=== PATIENT | female | born 1975 | race Caucasian/White ===

== ENCOUNTER 2017-06-24 18:20 | Emergency (ER) | payer MEDICARE, OTHER ==
[~2017-06-24] VITALS: Ht 170.2 cm; Wt 128.4 kg
[~2017-06-24 18:20] MED LIST: ALPRAZOLAM0.5 MG PO; B COMPLETE1 EACH PO; CLARITIN10 MG PO; CLINDAMYCIN HC300 MG PO; EPIPEN 2-P0.3 MG/0.3 IM; FLOMAX0.4 MG PO; HUMALOG100 UNIT/2 SUB-Q; IBUPROFEN600 MG PO; LANTUS100 UNITS/ SUB-Q; LISINOPRIL10 MG PO; MACROBID 100 M100 MG PO; MAGNESIUM100 MG PO; MOTRIN800 MG PO; NEURONTIN400 MG PO; NOVOLIN R100 UNIT/1 IJ; NOVOLOG100 UNITS/ IV; OMEPRAZOLE20 MG PO; PROTONIX20 MG PO; TOUJEO SOL300 UNIT/1 SQ; TRAMADOL HCL50 MG PO; ULTRAM50 MG PO; VICTOZA 3-0.6 MG/0.1 SUB-Q; ZOFRAN8 MG PO
[2017-06-24] MEDS ORDERED: FENOFIBRATE145 MG PO (19:17)
[2017-06-24] MEDS ORDERED: LISINOPRIL10 MG PO (19:17)
[2017-06-24] MEDS ORDERED: VENTOLIN HFA18 GM INH (19:18)
[2017-06-24] MEDS ORDERED: CYCLOBENZAPRINE10 MG PO (20:10)
[2017-06-24] MEDS ORDERED: NAPROXEN500 MG PO (20:10)
== END 2017-06-24 20:28 | disposition home or self-care (01) ==
LOC: ED 18:20
DX: S29.019A Strain of muscle and tendon of unspecified wall of thorax, initial encounter (principal); E10.9 Type 1 diabetes mellitus without complications; I10 Essential (primary) hypertension; H81.09 Meniere's disease, unspecified ear; Z87.442 Personal history of urinary calculi; Z98.51 Tubal ligation status; Z88.2 Allergy status to sulfonamides; Z88.5 Allergy status to narcotic agent; Z88.1 Allergy status to other antibiotic agents; Z88.0 Allergy status to penicillin; Z79.4 Long term (current) use of insulin; Z79.899 Other long term (current) drug therapy; X58.XXXA Exposure to other specified factors, initial encounter
CPT/HCPCS: 71020; 99283

== ENCOUNTER 2017-09-17 05:11 | Emergency (ER) | payer MEDICARE, OTHER ==
[~2017-09-17] VITALS: Ht 170.2 cm; Wt 128.4 kg
[~2017-09-17 05:11] MED LIST changes: +CYCLOBENZAPRINE10 MG PO; +FENOFIBRATE145 MG PO; +NAPROXEN500 MG PO; +VENTOLIN HFA18 GM INH
[2017-09-17] MEDS ORDERED: DULOXETINE HCL30 MG PO (05:29)
[2017-09-17] MEDS ORDERED: FLOMAX0.4 MG PO (07:00)
[2017-09-17] MEDS ORDERED: ZOFRAN ODT4 MG PO (07:00)
[2017-09-17] MEDS ORDERED: DILAUDID2 MG PO (07:00)
[2017-09-17] MEDS ORDERED: MACROBID 100 M100 MG PO (07:03)
== END 2017-09-17 07:27 | disposition home or self-care (01) ==
LOC: ED 05:11
DX: N13.2 Hydronephrosis with renal and ureteral calculous obstruction (principal); E10.9 Type 1 diabetes mellitus without complications; I10 Essential (primary) hypertension; F17.200 Nicotine dependence, unspecified, uncomplicated; Z87.442 Personal history of urinary calculi; Z98.51 Tubal ligation status; Z91.048 Other nonmedicinal substance allergy status; Z88.2 Allergy status to sulfonamides; Z88.8 Allergy status to other drugs, medicaments and biological substances; Z88.5 Allergy status to narcotic agent; Z88.0 Allergy status to penicillin; Z88.1 Allergy status to other antibiotic agents; Z79.899 Other long term (current) drug therapy; Z79.4 Long term (current) use of insulin
CPT/HCPCS: 36415; 74176; 80053; 81001; 85025; 87088; 96374; 96375; 99284; J1170; J1885; J2405

== ENCOUNTER 2017-09-19 10:49 | Observation (INO) | payer MEDICARE, OTHER ==
[~2017-09-19] VITALS: Ht 170.2 cm; Wt 133.4 kg
--- OUTSIDE RECORDS SUMMARY | ~2017-09-19 | XMS | Clinical Summary ---
Demographics + + + | Address | [address] | | | [place] [address] | + + + | Home Phone | | + + + | Preferred Language | Unknown | + + + | Marital Status | | + + + | Druze Affiliation | NON | + + + | Race | White | + + + | Ethnic Group | Not or | + + + Author + + + | Author | [facility] | + + + | Organization | [facility] | + + + | Address | Unknown | + + + | Phone | Unavailable | + + + Support +------+ + + + +-------+ | Name | Relationship | Address | Phone | +------+ + + + +-------+ ECON | | | #[id number] | [phone] | +------+ + + + +-------+ Care Team Providers + +------+-------+ | Care Roller Name | Role | Phone | + +------+-------+ | Lalit Warner SIGNAL TESTER | PP | tel | + +------+-------+ Source Comments FANG is fully live on both EpicCare Ambulatory and EpicCare InPatient.[facility] Allergies + + + + + + | Active Allergy | Reactions | Severity | Noted | Comments | | | | | Date | | + + + + + + | Diphenhydramine Hcl | Hives | | 08/26/20 | | | | | | 15 | | + + + + + + | Codeine | Unknown | | /08/12 | | | | | | 15 | | + + + + + + | Honey | Unknown | | / | | | | | | 15 | | + + + + + + | Influenza Virus Vacc | Airway Constriction | High | 10/09/20 | | | Trivalent [id number] | | | 15 | | + + + + + + | Morphine | Anaphylaxis | High | 08/26/20 | | | | | | 15 | | + + + + + + | Penicillin | Anaphylaxis | High | 07/03/20 | | | | | | 15 | | + + + + + + | Oxycodone-Acetaminop | Unknown | High | 08/26/20 | Historical- | | hen | | | 15 | patient unsure of | | | | | | reaction but knows | | | | | | had reaction in the | | | | | | past | + + + + + + | Sulfa (Sulfonamide | Unknown | | 07/03/20 | | | Antibiotics) | | | 15 | | + + + + + + | Hydrocodone-Acetamin | Unknown | | 07/03/20 | | | ophen | | | 15 | | + + + + + + Current Medications + + +---------+---------+------+------+-------+ | Prescription | Sig. | Disp. | Refills | Star | End | Statu | | | | | | t | Date | s | | | | | | Date | | | + + +---------+---------+------+------+-------+ | omeprazole 40 mg | Take 40 mg by mouth | | | | | Activ | | oral capsule,delayed | once daily in the | | | | | e | | release(DR/EC) | morning. | | | | | | + + +---------+---------+------+------+-------+ | loratadine 10 mg | Take 10 mg by mouth | | | | | Activ | | oral tablet | once daily in the | | | | | e | | | morning. | | | | | | + + +---------+---------+------+------+-------+ | lisinopril 10 mg | Take 10 mg by mouth | | | | | Activ | | oral tablet | once daily at | | | | | e | | | bedtime. | | | | | | + + +---------+---------+------+------+-------+ | ibuprofen 600 mg | Take 600 mg by mouth | | | | | Activ | | oral tablet | every six hours as | | | | | e | | | needed. | | | | | | + + +---------+---------+------+------+-------+ | glucose chewable 4 | Chew and swallow 2.5 | 30 | 1 | 12/2 | | Activ | | gram oral | tablets as needed | tablet | | 0/20 | | e | | tablet,chewable | for hypoglycemia. | | | 15 | | | | | Repeat in 10 minutes | | | | | | | | if necessary. | | | | | | | | Response should | | | | | | | | occur in 10 minutes. | | | | | | + + +---------+---------+------+------+-------+ | polyethylene | Dissolve 17 g (1 | 255 g | 0 | 12/2 | | Activ | | glycol 17 gram/dose | capful) in at least | | | 0/20 | | e | | oral powder | 4 ounces of fluid | | | 15 | | | | | and drink once | | | | | | | | daily. | | | | | | + + +---------+---------+------+------+-------+ | senna-docusate | Take 1 tablet by | 30 | 0 | 12/2 | | Activ | | 8.6-50 mg oral | mouth two times | tablet | | 0/20 | | e | | tablet | daily. | | | 15 | | | + + +---------+---------+------+------+-------+ | magnesium oxide | Take 250 mg by mouth | | | | | Activ | | 250 mg oral tablet | once daily. Take | | | | | e | | | two tabs once daily | | | | | | + + +---------+---------+------+------+-------+ | hydrocortisone 10 | Take 2 tablets by | 120 | 1 | 01/1 | | Activ | | mg oral tablet | mouth two times | tablet | | 2/20 | | e | | | daily. Taper as | | | 16 | | | | | instructed starting | | | | | | | | with evening dose to | | | | | | | | 20mg daily | | | | | | + + +---------+---------+------+------+-------+ | potassium chloride | Take 1 tablet by | 30 | 1 | 01/1 | | Activ | | SR 20 mEq oral | mouth once daily. | tablet | | 2/20 | | e | | tablet,ER | | | | 16 | | | | particles/crystals | | | | | | | + + +---------+---------+------+------+-------+ | VICTOZA 3-QUANG 0.6 | | | | 05/0 | | Activ | | mg/0.1 mL (18 mg/3 | | | | 3/20 | | e | | mL) subcutaneous pen | | | | 16 | | | | injector | | | | | | | + + +---------+---------+------+------+-------+ | VENTOLIN HFA 90 | | | | 02/2 | | Activ | | mcg/actuation | | | | 2/20 | | e | | inhalation HFA | | | | 16 | | | | aerosol inhaler | | | | | | | + + +---------+---------+------+------+-------+ | insulin glargine | Inject 700 Units | | | | | Activ | | 300 unit/mL (1.5 mL) | under the skin | | | | | e | | subcutaneous | (SUBC) once daily. 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 | + + + + + | Overview: Sep 2015: Left Adrenalectomy | + + + +---+ | Type 1 diabetes mellitus (HCC) | | + +---+ | Poor venous access | | + +---+ Resolved Problems + + + + | Problem | Noted | Resolved | | | Date | Date | + + + + | Adrenal mass, left (HCC) | 08/26/20 | | | | 15 | 5 | + + + + | Adrenal cortical adenoma of left adrenal gland | 07/03/20 | | | | 15 | 5 | + + + + + + | Overview: Nov 2013 CT: Left 3 cm adenoma | + + Family History + + +------+ + | Medical History | Relation | Name | Comments | + + +------+ + | Heart Disease | Father | | | + + +------+ + | Anesthesia | Mother | | unknown reaction "allergic to something" | + + +------+ + + +------+--------+ + | Relation | Name | Status | Comments | + +------+--------+ + | Father | | | | + +------+--------+ + | Mother | | | | + +------+--------+ + Social History + + + +--------+ + | Tobacco Use | Types | Packs/Day | Years | Date | | | | | Used | | + + + +--------+ + | Former Smoker | Cigarettes | 0.1 | 10 | Quit: 10/24/2009 | + + + +--------+ + + +------+---+ + | Smokeless Tobacco: | Chew | | Quit: | | Former User | | | 10/24/19 | | | | | 03 | + +------+---+ + + + | Tobacco Cessation: Counseling Given: Yes | + + + + +---------+ + | Alcohol Use | Drinks/We | oz/Week | Comments | | | ek | | | + + +---------+ + | Yes | 0 | 0.0 | rarely | | | Standard | | | | | drinks or | | | | | | | | | | equivalen | | | | | t | | | + + +---------+ + + + + | Sex Assigned at | Date Recorded | | | | + + + | Not on file | | + + + Last Filed Vital Signs + + + + | Vital Sign | Reading | Time Taken | + + + + | Blood Pressure | 116/79 | 02/27/2016 10:43 AM PDT | + + + + | Pulse | 89 | 02/27/2016 10:43 AM PDT | + + + + | Temperature | 36.8 C (98.3 F) | 02/27/2016 10:43 AM PDT | + + + + | Respiratory Rate | 16 | 12/29/2015 9:05 AM PST | + + + + | Oxygen Saturation | 96% | 10/12/2015 8:21 AM PST | + + + + | Inhaled Oxygen | - | - | | Concentration | | | + + + + | Weight | 135.6 kg (299 lb) | 02/27/2016 10:43 AM PDT | + + + + | Height | 170.2 cm (5' 7") | 02/27/2016 10:43 AM PDT | + + + + | Body Mass Index | 46.83 | 02/27/2016 10:43 AM PDT | + + + + Plan of Treatment + + + + + | Health Maintenance | Due Date | Last Done | Comments | + + + + + | MONOFILAMENT FOOT | | | | | EXAM | 6 | | | + + + + + | URINE MICROALBUMIN | | | | | | 6 | | | + + + + + | CREATININE | | 02/27/2016, 12/29/2015, | | | | 7 | 10/12/2015, Additional history | | | | | exists | | + + + + + | INFLUENZA VACCINE | | | | | (FLU SHOT) | 7 | | | + + + + + Results Not on filefrom Last 3 Months
--- OUTSIDE RECORDS SUMMARY | ~2017-09-19 | XMS | Clinical Summary ---
Demographics + + + | Address | [address] | | | [place] [address] | + + + | Home Phone | | + + + | Preferred Language | Unknown | + + + | Marital Status | | + + + | Episcopal Affiliation | NON | + + + [...] ECON | | | #[id number] | [phone] | +------+ + + + +-------+ Care Team Providers + +------+-------+ | Care Electromechanical Technician Name | Role | Phone | + +------+-------+ | Lalit Warner DISPLAY MANAGER | PP | tel | + +------+-------+ Source Comments F[facility] is fully live on both EpicCare Ambulatory and EpicCare InPatient.[facility] Allergies + + + + + + [...] High | 10/09/20 | | | Trivalent [id number] | | | 15 | | + [...]
[~2017-09-19 10:49] MED LIST changes: +DILAUDID2 MG PO; +DULOXETINE HCL30 MG PO; +ZOFRAN ODT4 MG PO
[2017-09-20] MEDS ORDERED: LEVOFLOXACIN500 MG PO (13:16)
--- NOTE | 2017-09-21 07:51 | OR ---
[facility] [address], [place] [address] Signed DATE OF OPERATION: 09/19/2017 SURGEON: Checo Messina MD PREOPERATIVE DIAGNOSES: 1. Recent onset left-sided flank pain. 2. A 3 x 6 mm left ureterolithiasis. POSTOPERATIVE DIAGNOSES: 1. Recent onset left-sided flank pain. 2. A 3 x 6 mm left ureterolithiasis. 3. A 6 mm left renal calculus. NAMES OF PROCEDURES: 1. Diagnostic cystoscopy with left retrograde pyelogram. 2. Left flexible nephroureteroscopy with laser lithotripsy and basket extraction of stones. 3. Insertion of an indwelling left ureteral stent. ANESTHESIA: General with endotracheal intubation. ESTIMATED BLOOD LOSS: None. COMPLICATIONS: None. INDICATION FOR PROCEDURE: Ms. Garcia is a very pleasant 42-year-old female, who presented to the emergency department today with a 3-day history of severe left-sided flank pain. She underwent a CT scan, which revealed a 3 x 6 mm left proximal ureteral calculus, along with a 6 mm left lower pole renal calculus. Her creatinine was normal at 0.91. Her urine culture obtained three days ago had revealed no growth. The emergency department was then unable to get her pain under control with oral narcotics. She was therefore sent straight to the operating room to undergo elective ureteroscopy. After she was consented for the procedure, she was placed under LMA anesthesia, however, she began to vomit with the LMA mask in place and she was immediately intubated and her airway was sucked of approximately 15-20 mL of bilious fluid. Chest x-ray was performed, which revealed good placement of the ET tube. Based on the findings of the chest x-ray and the vital stability, the patient, the decision was made to continue with the elective ureteroscopy. OPERATIVE FINDINGS: 1. On cystoscopy, there was no evidence of any suspicious masses, lesions, or stones. Bilateral ureteral orifices are in their normal anatomic location. Electronically Signed By: CHECO MESSINA MD 09/21/17 0751 PATIENT NAME: KENN GARCIA OPERATIVE REPORT DATE OF : 77 PHYSICIAN: CHECO MESSINA MD REPORT #: [id number] REPORT IS CONFIDENTIAL AND NOT TO BE RELEASED WITHOUT AUTHORIZATION [facility] [address] [place] [id number] Signed 2. Left retrograde pyelogram revealed a filling defect in the left renal pelvis consistent with an approximately 5-6 mm stone. There were some mild calyceal dilation noted. 3. Left nephroureteroscopy was performed, which revealed a significant amount of stone sediment present within the left renal pelvis. I was able to appreciate both of the 6 mm stones, which I fragmented with a holmium laser to the best of my ability given the compromised visualization. 4. Approximately 60%-70% of the stone burden was extracted successfully and this placed in a specimen cup to be sent for stone analysis. The patient then underwent insertion of a 6 x 26 cm contour double-J ureteral stent into the left ureter under direct visualization without difficulty. 5. The patient remained hemodynamically stable with good oxygen saturation throughout the entire case. DESCRIPTION OF PROCEDURE: After informed consent was obtained, the patient was taken back to the operating room. She was transferred from the [facility] to the operating room table and then LMA anesthesia was induced, which ultimately was converted to general anesthesia with an endotracheal tube. She was placed in dorsal lithotomy position and her genitalia were prepped and draped in a sterile fashion. Using a 30 degree lens on a 22-Malagasy introducer rigid cystoscope was inserted through the urethra into her bladder under direct visualization. Panendoscopic endoscopic views of the bladder were then obtained. Please see the findings. Attention was turned to the left ureteral orifice. A Sensor wire was inserted up into the left ureteral orifice into the left kidney. An 09/05 ureteral access sheath was passed over the wire and into the patient's left ureter under fluoroscopic guidance. The left retrograde pyelogram was performed. Please see above findings. The obturator was then removed and a left flexible ureteral scope was advanced through the sheath and into the left proximal ureter and left collecting system. Please see above findings. It was very difficult to visualize the left renal pelvis due to the significant amount of sediment present within the kidney. However, I was able to visualize quite a few fragments that I lasered down to smaller fragments, most notably the 6 mm stone present in the lower pole of the left kidney. I believe, I was also able to fragment the smaller formally obstructing ureteral calculus. I was able to basket approximately 60% of the stone burden that I was able to visualize. Toward the end of the case, the visual field became obscured not only by stone sediment, but also by significant amount of bleeding from within the calices. Once I was satisfied that I had basketed as many fragments as I could, I passed a Sensor wire through the ureteral access sheath up into the left renal pelvis and then removed the ureteral access sheath. Over the wire, a 6 x 26 cm contour double-J ureteral stent was passed into the left ureter under direct visualization without difficulty. An adequate proximal coil was seen within the left renal pelvis along with an adequate distal coil in the bladder. The patient's bladder was then emptied and the procedure was then terminated. The patient tolerated the procedure well Electronically Signed By: CHECO MESSINA MD 09/21/17 0751 PATIENT NAME: KENN GARCIA OPERATIVE REPORT DATE OF : 77 PHYSICIAN: CHECO MESSINA MD REPORT #: [id number] REPORT IS CONFIDENTIAL AND NOT TO BE RELEASED WITHOUT AUTHORIZATION [facility] [address] [place] [id number] Signed without any complication. She will now be transferred to the critical care unit for routine monitoring given her short-lived respiratory failure that occurred just prior to surgery due to what appeared to be aspiration of vomitus with an LMA in place. To reiterate, however, once the patient was intubated, she recovered nicely and remained widely stable and with good oxygen saturations throughout the remainder of the case. MD YOSEF Villalobos/MODL /[id number] Electronically Signed By: CHECO MESSINA MD 09/21/17 0751 PATIENT NAME: STARLA GARCIACHRISTINA GÓMEZ OPERATIVE REPORT DATE OF : 77 PHYSICIAN: CHECO MESSINA MD REPORT #: [id number] REPORT IS CONFIDENTIAL AND NOT TO BE RELEASED WITHOUT AUTHORIZATION
== END 2017-09-20 13:45 | disposition home or self-care (01) ==
LOC: ED 10:49 → DS 13:26 → CCU 17:12 → DS 17:12 → CCU 17:12
PROVIDERS: ADMIT Urology
PROC: 0T778DZ Dilation of Left Ureter with Intraluminal Device, Via Natural or Artificial Opening Endoscopic (ICD-10-PCS; principal; 2017-09-19 14:00)
PROC: 0TF78ZZ Fragmentation in Left Ureter, Via Natural or Artificial Opening Endoscopic (ICD-10-PCS; principal; 2017-09-19 14:00)
DX: N20.2 Calculus of kidney with calculus of ureter (principal); T17.918A Gastric contents in respiratory tract, part unspecified causing other injury, initial encounter; J96.01 Acute respiratory failure with hypoxia; E11.42 Type 2 diabetes mellitus with diabetic polyneuropathy; I10 Essential (primary) hypertension; H81.09 Meniere's disease, unspecified ear; F17.210 Nicotine dependence, cigarettes, uncomplicated; E66.9 Obesity, unspecified; E78.5 Hyperlipidemia, unspecified; K21.9 Gastro-esophageal reflux disease without esophagitis; J45.909 Unspecified asthma, uncomplicated; Z79.1 Long term (current) use of non-steroidal anti-inflammatories (NSAID); Z79.4 Long term (current) use of insulin; Z79.891 Long term (current) use of opiate analgesic; Z68.41 Body mass index [BMI] 40.0-44.9, adult; Z79.899 Other long term (current) drug therapy; Z88.5 Allergy status to narcotic agent; Z88.0 Allergy status to penicillin; Z88.2 Allergy status to sulfonamides; Z88.8 Allergy status to other drugs, medicaments and biological substances
CPT/HCPCS: 00910; 36415; 71010; 71020; 74176; 74420; 80048; 82365; 85025; 96361; 96365; 96374; 96375; 96376; 99285; 99407; C2617; G0378; J1170; J1885; J1956; J2405; J2704; J2765; J3010; J7030; J7120; Q9967

== ENCOUNTER → 2020-02-09 | Emergency (ER) | payer MEDICARE, OTHER ==
[~2020-02-09] VITALS: Ht 170.2 cm; Wt 114.8 kg
[~2020-02-09] MED LIST changes: +CLEOCIN HCL300 MG PO; +LEVOFLOXACIN500 MG PO
--- OUTSIDE RECORDS SUMMARY | 2020-02-09 10:26 | XMS ---
PreManage Notification: KENN GARCIA Security Flooring Salesperson Events No recent Security Events currently on file CRITERIA MET - [facility] Has Care Guidelines CARE PROVIDERS There are no care providers on record at this time. Guidelines Source: [facility] [place] Guidelines Date: 02/05/2020 Care Coordination: Currently seeking mental health services through [facility]. Please contact [facility] for any mental health concerns.\T\nbsp; [place] [phone] [place] [phone] Crisis Line [phone] E.D. VISIT COUNT (12 MO.) [address] TOTAL 2 NOTE: Visits indicate total known visits. ED/UCC VISIT TRACKING (12 MO.) 02/09/2020 10:24 [facility] TYPE: Emergency COMPLAINT: - FEVER,SWELLING RIGHT LEG AND PAIN 08/07/2019 08:46 [facility] [place] TYPE: Emergency DIAGNOSES: - Pain in right shoulder - Paresthesia of skin - Weakness - Anesthesia of skin - Weakness INPATIENT VISIT TRACKING (12 MO.) No inpatient visits to display in this time frame [email or web address]
== END ==
LOC: ED 10:22
DX: L03.115 Cellulitis of right lower limb (principal); E10.9 Type 1 diabetes mellitus without complications; I10 Essential (primary) hypertension; Z88.2 Allergy status to sulfonamides; Z91.030 Bee allergy status; Z88.5 Allergy status to narcotic agent; Z88.0 Allergy status to penicillin; Z79.899 Other long term (current) drug therapy
CPT/HCPCS: 81001; 99283

== ENCOUNTER 2020-09-08 09:19 | Emergency (ER) | payer MEDICARE, OTHER ==
[~2020-09-08] VITALS: Ht 170.2 cm; Wt 113.4 kg
--- OUTSIDE RECORDS SUMMARY | 2020-09-08 09:22 | XMS ---
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 Please contact [facility] for any mental health concerns.\T\nbsp; [place] [phone] [place] [phone] [facility] [phone] Care History Medical/Surgical 02/11/2020 [facility] - Patient is currently established with [facility]. If patient is seen in the ED during business hours. Please contact CHWs at [facility]. Care Recommendation: If this patient has had 5 or more Emergency Department visits in the last 12 months.\T\nbsp; Patient will require education on the scope and purpose of the ED as an acute care provider not a Primary Care Provider and should not be utilized for chronic conditions.\T\nbsp; These are guidelines and the provider should exercise clinical judgment when providing care. E.D. VISIT COUNT (12 MO.) [address] [facility] TOTAL 2 NOTE: Visits indicate total known visits. ED/UCC VISIT TRACKING (12 MO.) 09/08/2020 09:20 [facility] [place] TYPE: Emergency COMPLAINT: - POSSIBLE CONCUSSION, FALL 02/09/2020 10:24 [facility] [place] TYPE: Emergency COMPLAINT: - FEVER,SWELLING RIGHT LEG AND PAIN DIAGNOSES: - Allergy status to narcotic agent - Allergy status to sulfonamides - Other terminal system operator (current) drug therapy - Type 1 diabetes mellitus without complications - Fever, unspecified - Cellulitis of right lower limb - Bee allergy status - Allergy status to penicillin - Essential (primary) hypertension INPATIENT VISIT TRACKING (12 MO.) No inpatient visits to display in this time frame [email or web address]
== END 2020-09-08 10:36 | disposition home or self-care (01) ==
LOC: ED 09:19
DX: T33.822A Superficial frostbite of left foot, initial encounter (principal); S83.92XA Sprain of unspecified site of left knee, initial encounter; X31.XXXA Exposure to excessive natural cold, initial encounter; E10.9 Type 1 diabetes mellitus without complications; I10 Essential (primary) hypertension; Z88.8 Allergy status to other drugs, medicaments and biological substances; Z88.2 Allergy status to sulfonamides; Z88.5 Allergy status to narcotic agent; Z91.030 Bee allergy status; Z88.0 Allergy status to penicillin; Z79.899 Other long term (current) drug therapy; Z79.891 Long term (current) use of opiate analgesic; Z79.4 Long term (current) use of insulin
CPT/HCPCS: 73560; 93971; 99284-25

== ENCOUNTER 2021-01-28 13:48 | Emergency (ER) | payer MEDICARE, OTHER ==
[~2021-01-28] VITALS: Ht 170.2 cm; Wt 108.9 kg
--- OUTSIDE RECORDS SUMMARY | 2021-01-28 13:50 | XMS ---
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 Please contact [facility] for any mental health concerns.\T\nbsp; [place] [phone] [place] [phone] [facility] [phone] Care History Medical/Surgical 02/11/2020 [facility] - Patient is currently established with [facility]. If patient is seen in the ED during business hours. Please contact CHWs at [facility]. Care Recommendation: If this patient has had [...] providing care. E.D. VISIT COUNT (12 MO.) [address] [facility] TOTAL 3 NOTE: Visits indicate total known visits. ED/UCC VISIT TRACKING (12 MO.) 01/28/2021 13:49 [facility] [place] TYPE: Emergency COMPLAINT: - BEE STING 09/08/2020 09:20 [facility] [place] TYPE: Emergency COMPLAINT: - POSSIBLE CONCUSSION, FALL DIAGNOSES: - Essential (primary) hypertension - Bee allergy status - Superficial frostbite of left foot, initial encounter - Other long-term (current) drug therapy - Allergy status to narcotic agent - Allergy status to sulfonamides - Sprain of unspecified site of left knee, initial encounter - Superficial frostbite of left foot, initial encounter - Allergy status to penicillin - Allergy status to other drugs, medicaments and biological substances - Pain in left foot - Allergy status to narcotic agent - shelter (current) use of insulin - Sprain of unspecified site of left knee, initial encounter - Type 1 diabetes mellitus without complications - Allergy status to sulfonamides - Allergy status to other drugs, medicaments and biological substances - Exposure to excessive natural cold, initial encounter - shelter (current) use of opiate analgesic 02/09/2020 10:[address] [facility] [place] TYPE: Emergency COMPLAINT: - FEVER,SWELLING RIGHT LEG AND PAIN DIAGNOSES: - Allergy status to narcotic agent - Allergy status to sulfonamides - Other long-term (current) drug therapy - Type 1 diabetes mellitus without complications - Fever, unspecified - Cellulitis of right lower limb - Bee allergy status - Allergy status to penicillin - Essential (primary) hypertension INPATIENT VISIT TRACKING (12 MO.) No inpatient visits to display in this time frame [email or web address]
[2021-01-28] MEDS ORDERED: RELION NOV100 UNIT/1 SUB-Q (14:44)
[2021-01-28] MEDS ORDERED: ROSUVASTATIN CA40 MG (14:47)
[2021-01-28] MEDS ORDERED: POTASSIUM CITR15 MEQ PO (14:47)
[2021-01-28] MEDS ORDERED: VITAMIN D250 MC1 PO (14:48)
[2021-01-28] MEDS ORDERED: VITAMIN D250 MCG PO (14:51)
[2021-01-28] MEDS ORDERED: FIBER GUMMIES1 EACH PO (14:51)
[2021-01-28] MEDS ORDERED: EPIPEN 2-P0.3 MG/0.3 IM (16:36)
[2021-01-28] MEDS ORDERED: PREDNISONE20 MG PO (16:36)
== END 2021-01-28 16:48 | disposition home or self-care (01) ==
LOC: ED 13:48
DX: T63.461A Toxic effect of venom of wasps, accidental (unintentional), initial encounter (principal); E10.9 Type 1 diabetes mellitus without complications; I10 Essential (primary) hypertension; Z87.442 Personal history of urinary calculi; Z88.8 Allergy status to other drugs, medicaments and biological substances; Z91.030 Bee allergy status; Z88.2 Allergy status to sulfonamides; Z88.5 Allergy status to narcotic agent; Z88.0 Allergy status to penicillin; Z91.018 Allergy to other foods; Z79.899 Other long term (current) drug therapy; Z79.4 Long term (current) use of insulin
CPT/HCPCS: 94640; 96374; 96375; 99283-25; C9803; J0171; J1100

== ENCOUNTER 2023-01-06 19:43 | Emergency (ER) | payer MEDICARE, OTHER ==
[~2023-01-06] VITALS: Ht 167.6 cm; Wt 141.8 kg
[~2023-01-06 19:43] MED LIST changes: +FIBER GUMMIES1 EACH PO; +POTASSIUM CITR15 MEQ PO; +PREDNISONE20 MG PO; +RELION NOV100 UNIT/1 SUB-Q; +ROSUVASTATIN CA40 MG; +VITAMIN D250 MC1 PO; +VITAMIN D250 MCG PO
[2023-01-06] MEDS ORDERED: PIOGLITAZONE HC30 MG PO (20:21)
[2023-01-06] MEDS ORDERED: NOVOLOG100 UNIT/2 IV (20:22)
[2023-01-06] MEDS ORDERED: DOXYCYCLINE HY100 MG PO (21:45)
== END 2023-01-06 21:57 | disposition home or self-care (01) ==
LOC: ED 19:43
DX: H60.02 Abscess of left external ear (principal); E10.9 Type 1 diabetes mellitus without complications; I10 Essential (primary) hypertension; F17.200 Nicotine dependence, unspecified, uncomplicated; Z88.2 Allergy status to sulfonamides; Z88.8 Allergy status to other drugs, medicaments and biological substances; Z91.030 Bee allergy status; Z88.5 Allergy status to narcotic agent; Z88.0 Allergy status to penicillin; Z91.018 Allergy to other foods; Z79.899 Other long term (current) drug therapy; Z79.4 Long term (current) use of insulin
CPT/HCPCS: 99283

== ENCOUNTER 2023-09-21 04:49 | Emergency (ER) | payer MEDICARE, OTHER ==
[~2023-09-21] VITALS: Ht 167.6 cm; Wt 138.3 kg
[~2023-09-21 04:49] MED LIST changes: +DOXYCYCLINE HY100 MG PO; +INSULIN AS100 UNIT/2 SUB-Q; +NOVOLOG100 UNIT/2 IV; +PIOGLITAZONE HC30 MG PO
[2023-09-21] MEDS ORDERED: TRAMADOL HCL50 MG PO (05:47)
[2023-09-21 06:23] VITALS: BP 124/78
== END 2023-09-21 06:24 | disposition home or self-care (01) ==
LOC: ED 04:49
DX: M25.512 Pain in left shoulder (principal); E10.9 Type 1 diabetes mellitus without complications; I10 Essential (primary) hypertension; F17.200 Nicotine dependence, unspecified, uncomplicated; Z91.030 Bee allergy status; Z88.2 Allergy status to sulfonamides; Z88.5 Allergy status to narcotic agent; Z88.0 Allergy status to penicillin; Z88.8 Allergy status to other drugs, medicaments and biological substances; Z91.018 Allergy to other foods; Z79.4 Long term (current) use of insulin; Z79.899 Other long term (current) drug therapy
CPT/HCPCS: 73030; A9270

== ENCOUNTER 2024-03-06 03:23 | Emergency (ER) | payer MEDICARE, OTHER ==
[~2024-03-06] VITALS: Ht 167.6 cm; Wt 148.1 kg
[2024-03-06] MEDS ORDERED: KETOROLAC TROMETHAMINE 30 MG/ML VIAL IM ONE (04:00)
[2024-03-06] MEDS ORDERED: KETOROLAC TROMETHAMINE 15 MG/ML VIAL IV ONE (04:00)
[2024-03-06] MEDS ORDERED: ACETAMINOPHEN 500 MG TAB PO ONE (04:30)
[2024-03-06 05:00] VITALS: BP 126/84
== END 2024-03-06 05:09 | disposition home or self-care (01) ==
LOC: ED 03:23
DX: M25.512 Pain in left shoulder (principal); G89.29 Other chronic pain; E10.9 Type 1 diabetes mellitus without complications; I10 Essential (primary) hypertension; F17.200 Nicotine dependence, unspecified, uncomplicated; Z91.030 Bee allergy status; Z88.2 Allergy status to sulfonamides; Z88.5 Allergy status to narcotic agent; Z88.8 Allergy status to other drugs, medicaments and biological substances; Z91.018 Allergy to other foods; Z79.4 Long term (current) use of insulin; Z79.899 Other long term (current) drug therapy
CPT/HCPCS: 73030; 96372; 99283-25; A9270; J1885

== ENCOUNTER 2025-02-11 06:30 | Day surgery (SDC) | payer MEDICARE, OTHER ==
[2025-01-31 08:48] VITALS: BP 103/68
[~2025-02-11] VITALS: Ht 167.6 cm; Wt 134.0 kg
[~2025-02-11 06:30] MED LIST changes: +CEFDINIR300 MG PO; +CLARITIN10 M2 PO; +DAILY VITE1 EAC1 PO; +DICLOFENAC SODI75 MG PO; +LACTATED RINGER'S 1,000 ML IV SCH; +PIOGLITAZONE HC15 MG PO; +VITAMIN D210 MCG PO
[2025-02-11 06:52] VITALS: BP 141/82
[2025-02-11] MEDS ORDERED: IBLOOD GLUCOSE TEST STRIP 1 EA TEST VI PRN ×2 (07:00→09:30)
[2025-02-11] MEDS ORDERED: FAMOTIDINE 20 MG/ 2 ML VIAL IV SCH (07:00)
[2025-02-11] MEDS ORDERED: CEFAZOLIN SODIUM 3 GM/30 ML SYR IV SCH (07:00)
[2025-02-11] MEDS ORDERED: LIDOCAINE HCL 1% 5 ML SDV INJ ONE (07:00)
[2025-02-11] MEDS ORDERED: CYMBALTA30 MG PO (07:37)
[2025-02-11] MEDS ORDERED: iopamidoL 30 ML VIAL ONE (07:44)
[2025-02-11] MEDS ORDERED: ondansetron HCL 4 MG/2 ML VIAL IV PRN (08:00)
[2025-02-11] MEDS ORDERED: PROCHLORPERAZINE EDISYLATE 10 MG/2 ML VIAL IV PRN ×2 (08:00→09:30)
[2025-02-11] MEDS ORDERED: KETOROLAC TROMETHAMINE 30 MG/ML VIAL IV PRN (08:00)
[2025-02-11] MEDS ORDERED: ROCURONIUM BROMIDE 50 MG/5 ML SYR ONE ×2 (08:54→10:05)
[2025-02-11] MEDS ORDERED: fentaNYL citrate 250 MCG/5 ML VIAL ONE (08:54)
[2025-02-11] MEDS ORDERED: propofoL 200 MG/20 ML VIAL ONE (08:54)
[2025-02-11] MEDS ORDERED: ACETAMINOPHEN 1,000 MG/100 ML VIAL ONE (08:54)
[2025-02-11] MEDS ORDERED: SUCCINYLCHOLINE IN 0.9% NACL 200 MG/10 ML SYRINGE ONE (08:54)
[2025-02-11] MEDS ORDERED: MIDAZOLAM HCL 2 MG/2 ML VIAL ONE (08:55)
[2025-02-11] MEDS ORDERED: LIDOCAINE HCL 2% 5 ML SDV ONE (08:56)
[2025-02-11] MEDS ORDERED: SUGAMMADEX SODIUM 200 MG/2 ML ML ONE (09:27)
[2025-02-11] MEDS ORDERED: fentaNYL citrate 50 MCG/ML SDV IV PRN (09:30)
[2025-02-11] MEDS ORDERED: HYDROmorphone HCL 1 MG/ML SYR IV PRN (09:30)
[2025-02-11] MEDS ORDERED: droPERidol 5 MG/2 ML VIAL IV PRN (09:30)
[2025-02-11] MEDS ORDERED: NALOXONE HCL 0.4 MG SYR IV PRN (09:30)
[2025-02-11] MEDS ORDERED: ePHEDrine sulfate 50 MG/ML AMP ONE (09:35)
[2025-02-11] MEDS ORDERED: LACTATED RINGER'S 1,000 ML IV ONE (10:07)
--- NOTE | 2025-02-11 11:18 | NUR ---
02/11/25 Blanka8 Lennie Contreras 1055 PT ARRIVED IN PACU SLEEPY. 1059 BLOOD SUGAR 124 ON PT'S OWN T-SLIM DEVICE. 1115 AWAKENS TO VERBAL STIMULI, THEN FALLS BACK TO SLEEP.
[2025-02-11 11:49] VITALS: BP 180/76
--- NOTE | 2025-02-11 12:00 | NUR ---
PT BACK TO DS FROM PACU AWAKE AND ALERT. SHE REPORTS SOME MIND DISCOMPORT SHE DECLINES PAIN MEDS. PT ASKING TO USE BATHROOM SHE WAS ABLE TO AMBULATE WITH MINIMAL ASSIST. SHE WAS ABLE TO VOID 100ML OF BLOOD TINGED URINE
--- NOTE | 2025-02-11 12:13 | NUR ---
PT IS REQUESTING PAIN MEDS. DR MESSINA GAVE ORDER FOR DILAUDID 2MG. PT DENIES NAUSEA. PT EATING PUDDING AND TOLERATES WELL.
[2025-02-11] MEDS ORDERED: HYDROmorphone HCL 2 MG TAB PO ONE (12:15)
[2025-02-11 12:55] VITALS: BP 142/72
--- NOTE | 2025-02-11 13:08 | NUR ---
1232 PT REPORTS PAIN 7/10 TO LT FLANK PO DILAUDID GIVEN. 1240 PT UP TO BATHROOM WITH MINIMAL ASSIST. SHE WAS ABLE TO VOID 50ML OF BLOOD TINGED URINE. SHE STATES SHE WANTS TO GO HOME. DISCHARGE INSTRUCTIONS GIVENT TO PT AND HER SISTER BOTH VOICED UNDERSTANDING.
[2025-02-11] MEDS ORDERED: SEVOFLURANE 250 ML BTL INH ONE (13:53)
[2025-02-15 19:11] LABS: CALCULI MASS 101 mg (())
== END 2025-02-11 13:00 | disposition home or self-care (01) ==
LOC: DS 06:30 → OPS 06:30 → DS 09:55 → OPS 09:55
PROVIDERS: ATTEND Urology
PROC: BT1FZZZ Fluoroscopy of Left Kidney, Ureter and Bladder (ICD-10-PCS; principal; 2025-02-11 08:50)
PROC: 0TC48ZZ Extirpation of Matter from Left Kidney Pelvis, Via Natural or Artificial Opening Endoscopic (ICD-10-PCS; 2025-02-11 08:50)
DX: N20.0 Calculus of kidney (principal); N32.81 Overactive bladder; E10.40 Type 1 diabetes mellitus with diabetic neuropathy, unspecified; I10 Essential (primary) hypertension; Z79.4 Long term (current) use of insulin; Z79.899 Other long term (current) drug therapy; Z87.891 Personal history of nicotine dependence; Z88.0 Allergy status to penicillin; Z88.2 Allergy status to sulfonamides; Z88.5 Allergy status to narcotic agent; Z88.8 Allergy status to other drugs, medicaments and biological substances; Z91.030 Bee allergy status
CPT/HCPCS: 00910; 74420; 82365; C1769; C2617; J0131; J0330; J0690; J1885; J2003; J2250; J2704; J3010; J3490; J7121; Q9967

== ENCOUNTER 2025-06-03 05:55 | Day surgery (SDC) | payer MEDICARE, OTHER ==
[~2025-06-03] VITALS: Ht 167.6 cm; Wt 133.0 kg
[~2025-06-03 05:55] MED LIST changes: +CYMBALTA30 MG PO; +METFORMIN HCL500 MG PO; +NOVOLOG100 UNIT/2 SUB-Q
[2025-06-03 06:27] VITALS: BP 115/62
[2025-06-03] MEDS ORDERED: LIDOCAINE HCL 1% 30 ML SDV ONE (06:39)
[2025-06-03] MEDS ORDERED: LIDOCAINE HCL 2% 5 ML SDV ONE (06:56)
[2025-06-03] MEDS ORDERED: LIDOCAINE HCL 1% 5 ML SDV INJ ONE (07:00)
[2025-06-03] MEDS ORDERED: IBLOOD GLUCOSE TEST STRIP 1 EA TEST VI PRN (07:00)
[2025-06-03] MEDS ORDERED: CEFAZOLIN SODIUM 3 GM/30 ML SYR IV SCH (07:00)
[2025-06-03] MEDS ORDERED: FAMOTIDINE 20 MG/ 2 ML VIAL IV SCH (07:00)
[2025-06-03] MEDS ORDERED: SUCCINYLCHOLINE IN 0.9% NACL 200 MG/10 ML SYRINGE ONE (07:17)
[2025-06-03] MEDS ORDERED: PHENAZOPYRIDINE HCL 100 MG TAB PO ONE (07:45)
[2025-06-03] MEDS ORDERED: KETOROLAC TROMETHAMINE 15 MG/ML VIAL IV PRN (07:45)
--- NOTE | 2025-06-03 08:00 | NUR ---
PT NOT AVAILABLE FOR VISIT. PROVIDED PRAYER.
--- NOTE | 2025-06-03 08:52 | NUR ---
06/03/25 0852 Delma Wharotn LE 0832: PT ARRIVES TO PACU NON REACTIVE/AROUSAL TO STIMULI. REPORT RECEIVED FROM TAXI DRIVER AND PRICING COORDINATOR. LE 0839: BS 256 LE 0840: PT WAKES TO TACTILE AND VERBAL STIMULI. REPORTS NO PAIN OR NAUSEA. LE 0845: PT TAKEN OFF O2 FOR ROOM AIR TRIAL. LE 0850: DUE TO PT'S SLEEP APNEA HER SPO2 DROPPED TO 88% ON RA, SHE IS PUT ON 2L VIA NC. LE 0852: PT IS ASKING FOR ICE CHIPS.
[2025-06-03] MEDS ORDERED: NALOXONE HCL 0.4 MG SYR IV PRN (09:00)
[2025-06-03] MEDS ORDERED: MIDAZOLAM HCL 2 MG/2 ML VIAL IV PRN (09:00)
[2025-06-03] MEDS ORDERED: fentaNYL citrate 50 MCG/ML SDV IV PRN (09:00)
[2025-06-03 09:11] VITALS: BP 155/67
--- NOTE | 2025-06-03 09:24 | NUR ---
0908- PT ARRIVES FROM PACU. BEDSIDE REPORT RECIEVED FROM ADE CABALLERO. PT IS AWAKE AND REPORTS SHE NEEDS TO VOID. PT SIPPING ON WATER AND COFFEE BROUGHT BY ANTONI. PT IS ON 2L OF O2. VITAL SIGNS OBTAINED. PT IS AWARE OF DISCHARGE CRITERIA. 0920- PT ON ROOM AIR AND SATS ARE 96% WHILE SITTING UP AND TALKING WITH ANTONI AT BEDSIDE. PT UP TO USE THE RESTROOM. PT IS ABLE TO VOID WITH SOME BRIGHT RED BLOOD NOTED. JUNIOR ACCOUNT EXECUTIVE BLE TO GET BACK TO ROOM WITH NO ISSUES. GAIT STEADY AND EVEN.
[2025-06-03 10:22] VITALS: BP 117/54
--- NOTE | 2025-06-03 10:26 | NUR ---
1010- PT HAS HAD SOME PUDDING AND SIPPING ON WATER. PT HAS MET ALL DISCHARGE CRITERIA. VITAL SIGNS OBTAINED. PT IS ON ROOM AIR AND SATS STAY ABOVE 95%. DISCHARGE PAPERWORK GONE OVER. ALL QUESTIONS AND CONCERNS ANSWERED. IV REMOVED. 1025- PT UP TO USE THE RESTROOM WITH A STEADY AND EVEN GAIT. PT GETTINGS DRESSED WITH NURSE AT BEDSIDE. 1030- PT IS ABLE TO TRANSFER TO THE WHEELCHAIR WITH A STEADY AND EVEN GAIT. NO QUESTIOSN OR CONCERNS. PT AND PT ANTONI HAVE ALL BELONGINGS. PT DC'S FROM DAY SURGERY AT THIS TIME.
[2025-06-03] MEDS ORDERED: SEVOFLURANE 250 ML BTL INH ONE (15:59)
== END 2025-06-03 10:30 | disposition home or self-care (01) ==
LOC: DS 05:55
PROVIDERS: ATTEND Urology
PROC: 0TVD7ZZ Restriction of Urethra, Via Natural or Artificial Opening (ICD-10-PCS; principal; 2025-06-03 07:30)
DX: N36.42 Intrinsic sphincter deficiency (ISD) (principal); N39.3 Stress incontinence (female) (male); N32.81 Overactive bladder; N30.90 Cystitis, unspecified without hematuria; E10.65 Type 1 diabetes mellitus with hyperglycemia; E10.40 Type 1 diabetes mellitus with diabetic neuropathy, unspecified; I10 Essential (primary) hypertension; Z87.891 Personal history of nicotine dependence; Z79.899 Other long term (current) drug therapy; Z88.0 Allergy status to penicillin; Z88.2 Allergy status to sulfonamides; Z88.5 Allergy status to narcotic agent; Z88.7 Allergy status to serum and vaccine; Z88.8 Allergy status to other drugs, medicaments and biological substances; Z91.030 Bee allergy status; Z91.09 Other allergy status, other than to drugs and biological substances; Z98.51 Tubal ligation status
CPT/HCPCS: 00910; 36415; 84703; J0330; J0690; J2003; J2405; J2704; J7121; L8606